=== PATIENT | female | born 1960 | race Two or more races ===

== ENCOUNTER 2018-01-07 18:00 | Emergency (ER) | payer MEDICAID, OTHER ==
[~2018-01-07] VITALS: Ht 160 cm; Wt 59.0 kg
[2018-01-07] MEDS ORDERED: NKM (18:09)
[2018-01-07 18:19] VITALS: BP 123/81
--- NOTE | 2018-01-07 18:22 | Emergency Room Report ---
History of Present Illness General Chief Complaint: Back Pain-No Injury Source: Patient Present Illness HPI 57-year-old female patient presents ER complaining of right-sided back pain for the past day. Reports pain began today while she was sitting down and increased in intensity before subsiding, repeats pain returned later however it went away again. Reports pain symptoms currently 2 out of 10, states "not very painful now". Denies dysuria, hematuria. Denies abdominal pain. Denies recent injury or trauma. Reports back pain "sort of" radiates down to her right leg to her thigh. Denies bowel or bladder incontinence. Denies taking any medication for relief of symptoms. Denies fever, chest pain, shortness of breath. Denies history of kidney stones. Reports feelings of constipation. Denies diarrhea. Reports able to pass gas. Reports multiple small bowel movements. Reports always has "blood in urine". Denies hx of kidney disease. Denies RAMIREZ or vision changes. Allergies: Coded Allergies: No Known Allergies (Unverified , 01/07/18) Patient History Past Medical History: see triage record Last Menstrual Period: 2016 Now: No Reviewed Nursing Documentation: PMH: Agreed; PSxH: Agreed Nursing Documentation-PMH Past Medical History: No Stated History Review of Systems All Other Systems: negative except mentioned in HPI Physical Exam Vital Signs Date Time Temp Pulse Resp B/P (MAP) Pulse Ox O2 Delivery O2 Flow Rate FiO2 01/07/18 18:05 98.2 70 18 123/81 100 Room Air Sp02 EP Interpretation: reviewed, normal General Appearance: well appearing, no apparent distress, alert, GCS 15, non- toxic Head: normocephalic, atraumatic Eyes: bilateral eye normal inspection, bilateral eye PERRL ENT: hearing grossly normal, normal pharynx, no angioedema, normal voice, uvula midline, moist mucus membranes Neck: full range of motion Respiratory: lungs clear, normal breath sounds, no rhonchi, no respiratory distress, no accessory muscle use, no wheezing, speaking full sentences Cardiovascular #1: regular rate, rhythm, no edema Gastrointestinal: normal bowel sounds, non tender, soft, no mass, non-distended , no guarding, no pulsatile mass, no rebound Genitourinary: no CVA tenderness Musculoskeletal: back normal, digits/nails normal, gait/station normal, normal range of motion, non-tender, no calf tenderness, pelvis stable Neurologic: alert, oriented x3, responsive, motor strength/tone normal, SLR negative, sensory intact, cerebellar normal, normal gait, speech normal Skin: no rash Lymphatic: no adenopathy Medical Decision Making PA Attestation Dr. Gonzalez is my supervising Physician whom patient management has been discussed with. Diagnostic Impression: Primary Impression: Back pain Additional Impression: Constipation ER Course Pt. presents to the ED c/o right-sided low back pain and constipation. Ddx considered but are not limited to fracture, sprain, strain, contusion, dislocation, sciatica, kidney stone, UTI, disc herniation, constipation, AAA. no bowel or bladder incontinence, low suspicion for cauda equina. no abdominal pain, no pulsatile mass, suspicion for AAA. Vital signs: are WNL, pt. is afebrile Ordered X-ray and pain medication. ER COURSE Provided with pain medication, lidocaine patch, muscle relaxant. UA shows no no signs of infection, RBCs noted, negative protein, does not require further labs and imaging. F/u with PCP, discuss referral to [facility]/. An X-ray of the no acute disease, stool noted per the preliminary reading. independently relates constipation or muscular pain. Will provide patient with medication for constipation and back pain symptoms. Follow with primary care provider and discuss further treatment and referral at that time. Discuss referral to GI specialist as needed. Patient instructed on RICE method: rest, ice, compression, elevation. Patient instructed on rest, ice and heat. Contact information for orthopedic urgent care provided, follow-up with urgent care if unable to followup with primary care provider and get referral to exhibition specialist. Followup with primary care provider. Discuss referral to ortho/pain management/ PT as needed. Discuss further imaging with MRI/CT as needed. DISCHARGE: -Rx provided for Tylenol for pain symptoms. -Rx provided for lidocaine patch -Rx provided for Methocarbamol. SE drowsiness, do not drink, drive, or operate heavy machinery while using. -Rx provided for lactulose At this time pt. is stable for d/c to home. Patient is resting comfortably, in no acute distress, nontoxic appearing, talking without difficulty. Will provide printed patient care instructions, and any necessary prescriptions. Patient instructed to follow with primary care provider in 3 - 5 days and to request further follow-up as needed. Care plan and follow up instructions have been discussed with the patient prior to discharge. Take medications as directed. Patient questions asked and answered. Patient reports understanding and agreement to treatment plan. ER precautions given, patient instructed to return to ER immediately for any new or worsening of symptoms. - Please note that this Emergency Department Report was dictated using [email or web address] instructor technology software, occasionally this can lead to erroneous entry secondary to interpretation by the dictation equipment. Labs Test 01/07/18 18:25 Urine Color Pale yellow Urine Appearance Clear Urine pH 7 (4.5-8.0) Urine Specific [place] 1.010 (1.005-1.035) Urine Protein Negative (NEGATIVE) Urine Glucose (UA) Negative (NEGATIVE) Urine Ketones Negative (NEGATIVE) Urine Blood 5+ (NEGATIVE) Urine Nitrite Negative (NEGATIVE) Urine Bilirubin Negative (NEGATIVE) Urine Urobilinogen Normal MG/DL (0.0-1.0) Urine Leukocyte Esterase 3+ (NEGATIVE) Urine RBC 5-10 /HPF (0 - 2) Urine WBC 2-4 /HPF (0 - 2) Urine Squamous Epithelial Cells Occasional /LPF Urine Bacteria Occasional /HPF (NONE) Other X-Ray Diagnostic Results Other X-Ray Diagnostic Results : X-Ray ordered: lumbar spine # of Views/Limited Vs Complete: 3 View Indication: Pain EP Interpretation: Yes PA Xray: Interpretation reviewed, by supervising MD, and agrees with findings. Interpretation: no dislocation, no soft tissue swelling, no fractures, nonspecific bowel gas Impression: No acute disease PA Scribe Text Reuben Howell PA-C Last Vital Signs Date Time Temp Pulse Resp B/P (MAP) Pulse Ox O2 Delivery O2 Flow Rate FiO2 01/07/18 18:05 98.2 70 18 123/81 100 Room Air Status: improved Disposition: HOME, SELF-CARE Condition: Stable Scripts Acetaminophen* (TYLENOL EXTRA STRENGTH*) 500 Mg Tablet 500 MG ORAL Q8H PRN for Prn Headache/Temp > 101, #30 TAB 0 Refills Prov: Bienvenido Howell.A. 01/07/18 Methocarbamol* (ROBAXIN*) 500 Mg Tablet 500 MG PO TID, #21 TAB 0 Refills Prov: Bienvenido Howell.A. 01/07/18 Lidocaine (Lidocaine) 1 Each Adh..patch 5 % TP DAILY for 7 Days, #7 PATCH Prov: Bienvenido Howell.A. 01/07/18 Lactulose (LACTULOSE*) 20 Gm/30 Ml Solution 30 ML ORAL DAILY, #90 ML 0 Refills Prov: Bienvenido Howell 01/07/18 Patient Instructions: Back Pain, Adult, Constipation, Adult, [id number] Additional Instructions: Patient instructed to follow up with primary care provider 3-5 and discuss further referral to ortho/PT/pain management and MRI imaging at that time. Follow up GI specialist. Patient instructed on rest, ice and heat. Do not take muscle relaxant prior to drinking, driving, or operating heavy machinery. Take medications as directed. Patient questions asked and answered. ER precautions given, patient instructed to return to ER immediately for any new or worsening of symptoms. [facility] [address] [facility] [address] [facility], [address] [email or web address] Bienvenido Howell Jan 07, 2018 18:22
[2018-01-07] MEDS ORDERED: Acetaminophen 500mg (ES) tab ORAL ONE (18:30)
[2018-01-07] MEDS ORDERED: Methocarbamol 500mg tab ORAL ONE (18:30)
[2018-01-07 18:38] LABS: APPEARANCE,URINE CLEAR; BILIRUBIN, URINE NEGATIVE (NEGATIVE); COLOR,URINE PALE YELLOW; GLUCOSE, URINE (UA) NEGATIVE (NEGATIVE); KETONES,URINE NEGATIVE (NEGATIVE); LEUKOCYTE ESTERASE ,URINE 3+ (NEGATIVE); NITRITE,URINE NEGATIVE (NEGATIVE); PH,URINE 7 (4.5-8.0); PROTEIN,URINE NEGATIVE (NEGATIVE); UROBILINOGEN,URINE NORMAL MG/DL (0.0-1.0)
[2018-01-07] MEDS ORDERED: TYLENOL EXTRA500 MG ORAL (19:00)
[2018-01-07] MEDS ORDERED: ROBAXIN500 MG PO (19:00)
[2018-01-07] MEDS ORDERED: LACTULOSE20 GM/301 ORAL (19:00)
[2018-01-07] MEDS ORDERED: LIDOCAINE700 M1 TP (19:00)
[2018-01-07 19:09] VITALS: BP 127/84
--- NOTE | 2018-01-07 19:23 | Diagnostic Imaging Report ---
EXAM: XR Lumbar Spine, 2 or 3 Views CLINICAL HISTORY: PAIN TECHNIQUE: Frontal and lateral views of the lumbar spine. COMPARISON: No relevant prior studies available. FINDINGS: Vertebrae: No acute displaced fracture or subluxation. Disc spaces: No acute findings. No significant narrowing. Soft tissues: Unremarkable. IMPRESSION: No acute displaced fracture or subluxation.
== END 2018-01-07 19:09 | disposition home or self-care (01) ==
LOC: EMR 18:20
DX: K59.00 Constipation, unspecified (principal); M54.5 Low back pain
CPT/HCPCS: 72020; 81003; 99283